=== PATIENT | male | born 1970 | race Caucasian/White ===

== ENCOUNTER 2016-07-29 19:12 | Emergency (ER) | payer OTHER ==
[~2016-07-29] VITALS: Ht 170.2 cm; Wt 72.6 kg
[~2016-07-29 19:12] MED LIST: DIBUCAINE 1% TOP; FLEXERIL10 MG PO; FLOMAX0.4 M1 PO; IBUPROFEN800 M1 PO; PERCOCET 5-3251 EACH PO; PREDNISONE 20MG20 MG PO; TESSALON PERLE100 M1 PO; VALTREX1 GM PO; VICODIN 5-3001 EACH PO; VICODIN5-300 PO; ZOFRAN4 M1 PO
--- NOTE | 2016-07-29 20:32 | RADIOLOGY REPORT ---
EXAMINATION: XR HAND, LEFT CLINICAL INFORMATION: Left hand pain. Evaluate for fracture versus sprain. COMPARISON: None. TECHNIQUE: AP, lateral, and oblique views of the left hand. FINDINGS: The bones and soft tissues are normal. No fracture. Alignment is anatomic. Joint spaces are maintained. No erosions or soft tissue calcifications. IMPRESSION: No acute fracture or dislocation of the left hand. Joint spaces appear grossly preserved. Soft tissues appear unremarkable.
--- NOTE | 2016-07-29 20:42 | ED HAND/WRIST INJURY COMPLAINT ---
History of Present Illness General Chief Complaint: Hand or Wrist Injury Stated Complaint: PT HURT HIS LEFT WRIST Source: patient Exam Limitations: no limitations Vital Signs & Intake/Output Vital Signs & Intake/Output Vital Signs Date Time Temp Pulse Resp B/P Pulse O2 O2 Flow FiO2 Ox Delivery Rate 07/29 2057 80 16 130/72 97 Room Air 07/29 1921 98.4 92 18 136/87 96 Room Air Allergies Coded Allergies: NO KNOWN ALLERGIES (01/14/16) Reconcile Medications Hydrocodone/Acetaminophen (Vicodin 5-300 MG Tablet) 1 EACH TABLET 1 TAB PO 4 TIMES/DAY PRN BREAKTHROUGH PAIN Ibuprofen 800 MG TABLET 1 TAB PO TID PRN PAIN Oxycodone HCl/Acetaminophen (Percocet 5-325 MG Tablet) 5 MG-325 MG TABLET 1 TAB PO BID PAIN Tamsulosin HCl (Flomax) 0.4 MG CAP.ER.24H 1 CAP PO DAILY KIDNEY STONE Tramadol HCl 50 MG TABLET 1 TAB PO BIDP PRN PAIN VALACYCLOVIR HCL (Valtrex) 1 GM TAB 1 TAB PO BID herpes genitalia Triage Note: PT TO ED C/O LEFT WRIST/HAND PAIN S/P INJURY AT WORK YESTERDAY. STATES WAS MOVING LARGE METAL PLANK AND IT CAUGHT IN THE WIND, WRENCHING HIS LEFT WRIST YESTERDAY AT 11 AM. SWELLING NOTED. HAS ARIAN WRAP IN PLACE. DENIES NUMBNESS/TINGELING PT STATES HE DOES NOT WANT TO GO THROUGH [employer] ([place]) IT COMP Triage Nurses Notes Reviewed? yes Occurred: yesterday Duration: day(s): (1) Timing: no prior history Injury Environment: work Severity: moderate Severity Numbers: 8 Pain/Injury Location: Left: Hand. Context: twisted Method of Injury: twisted Modifying Factors: Worsens With: movement. HPI: Patient is a 35-year-old male presenting to the emergency department with chief complaint of left hand pain after twisting at work 2 days ago. Patient reports that he was holding a piece of sheet metal and the wind blew and it twisted his left hand backward. He then noticed swelling and pain. He was able to file the accident with work today. Denies any numbness or tingling. Pain is worse with movement. Has been taking Tylenol and Advil with little to no relief. No fevers chills nausea vomiting chest pain or shortness of breath. Denies numbness. No history of similar injury in the past. (RACHAEL DAVID) Past History Travel History Traveled to [place] past 21 day No Medical History Any Pertinent Medical History? 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 No (RACHAEL DAVID) Review of Systems Review of Systems Constitutional: Reports: no symptoms. Comments Review of systems: See HPI, All other systems negative. Constitutional, no chills fever or weight loss HEENT: No visual changes no sore throat no congestion Cardiovascular: No chest pain Skin, no jaundice no rashes Respiratory: No dyspnea cough GI: No nausea no vomiting : No dysuria No hematuria Muscle skeletal: no back pain, no neck pain, Neurologic: No numbness no confusion Psych: No stress anxiety Immunology: No splenectomy or history of AIDS (RACHAEL DAVID) Physical Exam Physical Exam General Appearance: well developed/nourished, no apparent distress, alert, awake , comfortable Hand Left: limited range of motion, swelling, tender Hand Right: normal inspection, normal range of motion Comments: Well-developed well-nourished person in no acute distress HEENT: . Pupils equally round and reactive to light and accommodation. Nose is atraumatic. Neck: Normal inspection Cardiovascular: normal JVP Respiratory: No respiratory distress. Extremity: Mild erythema and edema noted to the dorsum of the left hand. Limited range of motion of left hand secondary to pain. Capillary refill is intact in upper extremities bilaterally. Radial pulses are 2+ bilaterally. Full range of motion of left wrist. Neuro: Alert oriented x3, motor sensory normal Skin: Mild erythema noted over the dorsum of the left hand. Blanchable. Minimally warm. Psych: Mood and affect is normal, memory and judgment is normal. (RACHAEL DAVID) Progress Differential Diagnosis: cellulitis, contusion, dislocation, fracture, sprain Plan of Care: Orders Procedure Date/time Status Durable Medical Equipment 07/29 2053 Active Likely hand sprain. Patient educated on resting and icing and elevating. He will be started on anti-inflammatory and pain medication. Placed in a splint. He'll follow up with orthopedics for further evaluation if symptoms persist. (RACHAEL DAVID) Diagnostic Imaging: Viewed by Me: Radiology Read. Discussed w/RAD: Radiology Read. Radiology Impression: PATIENT: GAYLE PAYTON PRESENT AGE: 45 PATIENT ACCOUNT NO: [id number] : 70 LOCATION: [facility] ORDERING PHYSICIAN: TESSA CORREA MD SERVICE DATE: 07/29/16 EXAM TYPE: RAD - XRY- HAND, LEFT EXAMINATION: XR HAND, LEFT CLINICAL INFORMATION: Left hand pain. Evaluate for fracture versus sprain. COMPARISON: None. TECHNIQUE: AP, lateral, and oblique views of the left hand. FINDINGS: The bones and soft tissues are normal. No fracture. Alignment is anatomic. Joint spaces are maintained. No erosions or soft tissue calcifications. IMPRESSION: No acute fracture or dislocation of the left hand. Joint spaces appear grossly preserved. Soft tissues appear unremarkable. DICTATED BY: TYRELL LARES MD DATE/TIME DICTATED: 07/29/162026 CAMPUS COORDINATOR:CONCHA (RACHAEL DAVID) Departure Departure Time of Disposition: 2046 Disposition: HOME OR SELF CARE Condition: Stable Clinical Impression Primary Impression: Hand sprain Qualifiers: Encounter type: initial encounter Laterality: left Qualified Code: S63.92XA - Sprain of unspecified part of left wrist and hand, initial encounter Referrals: GAURAV TEMPLE MD (PCP/Family) FALLON RG,CRISTOPHER Mei Additional Instructions: Follow-up with orthopedics call to make an appointment. Wear splint for support. Rest, ice and elevate. Take Tylenol as prescribed for severe pain. Otherwise take [id number] Motrin or Tylenol as directed. Ice as much as possible. Departure Forms: Customer Survey General Discharge Information Prescriptions: Current Visit Scripts Tramadol HCl 1 TAB PO BIDP PRN PAIN #10 TAB (RACHAEL DAVID) PA/MASTER BAKER Co-Sign Statement Statement: ED Attending supervision documentation- [] I saw and evaluated the patient. I have also reviewed all the pertinent lab results and diagnostic results. I agree with the findings and the plan of care as documented in the OCTAVIANO's/MASTER BAKER's documentation. x I have reviewed the ED Record and agree with the PA's/MASTER BAKER's documentation. [] Additions or exceptions (if any) to the PAs/MASTER BAKER's note and plan are summarized below: [] (SUNNY RG,TESSA) Procedures Splinting Location: left hand Manual Alignment Performed: No Pre-Made Type: velcro Splint: wrist Splint Applied By: splint applied by other Pre-Proc Neuro Vasc Exam: normal Post-Proc Neuro Vasc Exam: normal Progress: Patient tolerated procedure well. (JESSIKA BRUMFIELD,RACHAEL)
[2016-07-29] MEDS ORDERED: TRAMADOL HCL50 M1 PO (20:52)
[2016-07-29 20:58] VITALS: BP 130/72
== END 2016-07-29 21:12 ==
LOC: ERH 19:12
DX: S63.92XA Sprain of unspecified part of left wrist and hand, initial encounter (principal); X50.9XXA Other and unspecified overexertion or strenuous movements or postures, initial encounter; Y93.89 Activity, other specified; Y92.9 Unspecified place or not applicable
CPT/HCPCS: 73130-LT

== ENCOUNTER 2016-10-26 13:28 | Emergency (ER) | payer OTHER ==
[~2016-10-26] VITALS: Ht 170.2 cm; Wt 72.6 kg
[~2016-10-26 13:28] MED LIST changes: +TRAMADOL HCL50 M1 PO
--- NOTE | 2016-10-26 14:15 | ED UPPER/LOWER EXTREMITY COMPL ---
History of Present Illness General Chief Complaint: General Adult Stated Complaint: GROIN PAIN X2 WEEKS Source: patient Exam Limitations: no limitations Vital Signs & Intake/Output Vital Signs & Intake/Output Vital Signs Date Time Temp Pulse Resp B/P B/P Pulse O2 O2 Flow FiO2 Mean Ox Delivery Rate 10/26 1337 97.8 91 14 133/88 98 Room Air Allergies Coded Allergies: NO KNOWN ALLERGIES (01/14/16) Reconcile Medications No Known Home Medications Triage Note: 46 Y/O MALE C/O BILATERAL GROIN PAIN X 2 WEEKS S/P PLAYING BASEBALL. STATES PAIN IS CONSTANT. DENIES N/V/D. DENIES URINARY SYMPTOMS Triage Nurses Notes Reviewed? yes Onset: Abrupt Duration: week(s): Timing: recent history Severity: moderate Method of Injury: fall, sports injury No Modifying Factors: none HPI: 46YO male presents to ED c/o bilateral groin pain. Patient states that 2 weeks ago he was playing softball and dove forward injuring his groin. He immediately felt pain and had to rest. He continues to have pain in his groin, worse on his right side. Pain is worse with movement and activity. He has taken tylenol with no relief in his symptoms. He denies urinary symptoms, testicular pain, abdominal pain, nausea, vomiting, fevers, chills. Past History Travel History Traveled to [place] past 21 day No Medical History Any Pertinent Medical History? 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 No Review of Systems Review of Systems Constitutional: Reports: no symptoms. EENTM: Reports: no symptoms. Respiratory: Reports: no symptoms. Cardiovascular: Reports: no symptoms. Gastrointestinal/Abdominal: Reports: no symptoms. Genitourinary: Reports: see HPI. Musculoskeletal: Reports: see HPI. Skin: Reports: no symptoms. Neurological/Psychological: Reports: no symptoms. Hematologic/Endocrine: Reports: no symptoms. Immunological: Reports: no symptoms. All Other Systems: Reviewed and Negative Physical Exam Physical Exam General Appearance: well developed/nourished, no apparent distress, alert, awake Head: atraumatic, normal appearance Eyes: Bilateral: normal appearance, EOMI. Ears, Nose, Throat: hearing grossly normal Neck: normal inspection, supple Cardiovascular/Respiratory: no respiratory distress Back: normal inspection, normal range of motion Progress Plan of Care: Orders Procedure Date/time Status URINALYSIS 10/26 142 Active COMPREHENSIVE METABOLIC PANEL 10/26 142 Active CBC WITHOUT DIFFERENTIAL 10/[address] PELVIS WO IV CONTRAST 10/26 142 Active XRY-AP PELVIS 10/26 1417 Active Departure Departure Disposition: HOME OR SELF CARE Condition: Stable Clinical Impression Primary Impression: Groin strain Referrals: GAURAV TEMPLE MD (PCP/Family) Additional Instructions: Take flexoril as prescribed as needed for pain. This medication can cause drowsiness, do not drive while on this medication. Take Motrin as prescribed for pain. Rest, apply ice, follow up with physical therapy for strengthening. Follow up with your primary care doctor. Return with any worsening symptoms or concerns. Please go over all results of today's visit with your primary care doctor. Contact your primary care doctor to let them know you were here in the emergency room. There may be nonspecific findings which may not be related to your visit today here in the emergency room but may require further evaluation and chronic monitoring by your primary care doctor. If you had a laceration today the chance of foreign body always remains. You should follow-up with your primary care doctor for recheck in 3-5 days for a wound check. If you had an x-ray done there is a chance that a fracture could have been missed on initial read and you should follow-up with your primary care doctor for repeat x-rays if symptoms persist. If your blood pressure was elevated here in the emergency room please have rechecked by her primary care doctor within the next 48 hours by your primary care doctor. If you were prescribed a narcotic here in the emergency room or any type of controlled substances you're not allowed to drive while taking this medication or operate any type of heavy machinery. Narcotics can make you feel lightheaded dizziness nausea and can cause constipation. You may need to shrimp picker a stool softener. Thank you for choosing [facility] emergency room. Please return to the emergency room immediately if you have any other concerns worsening of symptoms. Departure Forms: Customer Survey General Discharge Information Prescriptions: Current Visit Scripts No Known Home Medications
--- NOTE | 2016-10-26 14:32 | ED GENERAL ADULT ---
History of Present Illness General Chief Complaint: General Adult Stated Complaint: GROIN PAIN X2 WEEKS Source: patient Exam Limitations: no limitations Vital Signs & Intake/Output Vital Signs & Intake/Output Vital Signs Date Time Temp Pulse Resp B/P B/P Pulse O2 O2 Flow FiO2 Mean Ox Delivery Rate 10/26 1604 98.0 70 18 131/78 98 Room Air 10/26 1445 Room Air 10/26 1337 97.8 91 14 133/88 98 Room Air Allergies Coded Allergies: NO KNOWN ALLERGIES (01/14/16) Reconcile Medications Cyclobenzaprine HCl 10 MG TABLET 1 TAB PO QPM PRN pain Ibuprofen 800 MG TABLET 1 TAB PO TID PRN pain Triage Note: 46 Y/O MALE C/O BILATERAL GROIN PAIN X 2 WEEKS S/P PLAYING BASEBALL. STATES PAIN IS CONSTANT. DENIES N/V/D. DENIES URINARY SYMPTOMS Triage Nurses Notes Reviewed? yes Onset: Abrupt Duration: week(s): Timing: recent history Severity: moderate No Modifying Factors: none HPI: 46YO male presents to ED c/o bilateral groin pain. Patient states that 2 weeks ago he was playing softball and dove forward injuring his groin. He immediately felt pain and had to rest. He continues to have pain in his groin, worse on his right side. Pain is worse with movement and activity with radiation to his lower abdomen. He has taken tylenol with no relief in his symptoms. He denies urinary symptoms, testicular pain, nausea, vomiting, fevers, chills (PETERSON VALENCIA) Past History Travel History Traveled to [place] past 21 day No Medical History Any Pertinent Medical History? 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 No (PETERSON VALENCIA) Review of Systems Review of Systems Constitutional: Reports: no symptoms. EENTM: Reports: no symptoms. Respiratory: Reports: no symptoms. Cardiovascular: Reports: no symptoms. GI: Reports: see HPI. Genitourinary: Reports: see HPI. Musculoskeletal: Reports: see HPI. Skin: Reports: no symptoms. Neurological/Psychological: Reports: no symptoms. Hematologic/Endocrine: Reports: no symptoms. Immunologic/Allergic: Reports: no symptoms. All Other Systems: Reviewed and Negative (PETERSON VALENCIA) Physical Exam Physical Exam General Appearance: well developed/nourished, no apparent distress, alert Head: atraumatic, normal appearance Eyes: Bilateral: normal appearance, EOMI. Ears, Nose, Throat: hearing grossly normal Neck: normal inspection, supple Respiratory: no respiratory distress Gastrointestinal: normal bowel sounds, soft, non-tender, no organomegaly Back: normal inspection, normal range of motion Extremities: normal inspection, normal capillary refill, normal range of motion, pain with active hip flexion bilaterally Neurologic/Psych: no motor/sensory deficits, awake, alert, oriented x 3 Skin: intact, normal color, warm/dry Lymphatic: inguinal node tender (R), inguinal node tender (L) Comments: exam: inguinal tenderness to palpation, no skin changes Core Measures ACS in differential dx? No CVA/TIA Diagnosis: No Severe Sepsis Present: No Septic Shock Present: No (PETERSON VALENCIA) Progress Differential Diagnoses I considered the following diagnoses in my evaluation of the patient: [muscle strain, inguinal hernia, diverticulitis, epididymitis, nephrolithiasis] Plan of Care: Orders Procedure Date/time Status URINALYSIS 10/26 1425 Complete COMPREHENSIVE METABOLIC PANEL 10/26 1425 Complete CBC WITHOUT DIFFERENTIAL 10/26 1425 Complete Laboratory Tests 10/26/16 1445: Urinalysis LIGHT H, Urine Color YEL, Urine Clarity CLEAR, Urine pH 6.0, Ur Specific [place] 1.020, Urine Protein NEG, Urine Ketones NEG, Urine Nitrite NEG, Urine Bilirubin NEG, Urine Urobilinogen 0.2, Ur Leukocyte Esterase NEG, Ur Microscopic SEDIMENT EXAMINED, Urine RBC 1-3, Urine WBC RARE, Ur Epithelial Cells RARE, Urine Bacteria RARE H, Hyaline Casts RARE H, Urine Mucus FEW, Urine Hemoglobin SMALL H, Urine Glucose NEG 10/26/16 1437: Anion Gap 8, Estimated GFR > 60, BUN/Creatinine Ratio 17.0, Glucose 58 L, Calcium 9.7, Total Bilirubin 0.7, AST 18, ALT 30, Alkaline Phosphatase 52, Total Protein 7.1, Albumin 4.4, Globulin 2.7, Albumin/Globulin Ratio 1.6, CBC w Diff NO MAN DIFF REQ, RBC 5.06, MCV 92.3, MCH 30.7, RDW 12.9, MPV 7.6, Gran % 72.8, Lymphocytes % 15.9 L, Monocytes % 9.5 H, Eosinophils % 1.5, Basophils % 0.3, Absolute Granulocytes 7.7 H, Absolute Lymphocytes 1.7, Absolute Monocytes 1.0 H, Absolute Eosinophils 0.2, Absolute Basophils 0, PUBS MCHC 33.3 Patient is lying comfortably in stretcher, using his cell phone. He is in no distress, non toxic appearing, his vital signs are stable. CT scan shows pelvic lymph nodes have not changed in size since prior study, no evidence of fracture. Imaging and blood work was discussed with patient in detail. He was given a prescription for muscle relaxer and anti-inflammatory. He will follow up with physical therapy and his primary care doctor. He will return with any worsening symptoms or concerns. He has an agreement with plan of care. Symptoms are most consistent with muscular pain. Patient understands and agrees with plan of care. (JACKIE BRUMFIELD,PETERSON) Diagnostic Imaging: Viewed by Me: Radiology Read. Discussed w/RAD: Radiology Read. Radiology Impression: PATIENT: GAYLE PAYTON PRESENT AGE: 46 PATIENT ACCOUNT NO: [id number] : 70 LOCATION: [facility] ORDERING PHYSICIAN: PETERSON BRUMFIELD SERVICE DATE: 10/26/16 EXAM TYPE: CAT - CT PELVIS WO IV CONTRAST EXAMINATION: CT PELVIS WITHOUT CONTRAST CLINICAL INFORMATION: Pelvic pain status post fall, lymph node swelling. COMPARISON: TECHNIQUE: Helical scanning was performed with submillimeter collimation through the pelvis. Sagittal and coronal multiplanar 2-D reconstructions were obtained. DLP: 449 mGy-cm FINDINGS: PELVIS: There are multiple scattered distal descending and sigmoid colon diverticula without evidence of acute diverticulitis. The appendix is normal-appearing. Prostate is mildly enlarged containing multiple coarse calcifications unchanged. There is no evidence of pathologically enlarged lymph nodes. Multiple small nonspecific bilateral inguinal lymph nodes appear largely unchanged compared with the previous exam. Anterior abdominal wall is intact without evidence of underlying hernia. OSSEOUS STRUCTURES: No focal destructive or sclerotic osseous lesions are seen. There are small herniation pits in the femoral heads bilaterally, an incidental finding. IMPRESSION: 1. Multiple small bilateral inguinal lymph nodes appear unchanged compared with the previous exam. 2. No pathologically enlarged lymph nodes by size criteria. 3. Diverticulosis in the left colon without evidence of acute diverticulitis. 4. Osseous structures appear unremarkable without evidence of underlying fracture or focal pathologic-appearing osseous lesions. DICTATED BY: EB OQUENDO MD DATE/TIME DICTATED:10/26/161522 ASSOCIATE RESEARCH SCIENTIST: CONCHA DATE/TIME TRANSCRIBED:10/26/161522 CONFIDENTIAL, DO NOT COPY WITHOUT APPROPRIATE AUTHORIZATION. <Electronically signed in Other Vendor System> SIGNED BY: EB OQUENDO MD 10/26/16 3822 Initial ED EKG: none (PETERSON VALENCIA) Departure Departure Disposition: HOME OR SELF CARE Condition: Stable Clinical Impression Primary Impression: Groin strain Referrals: GAURAV TEMPLE MD (PCP/Family) Physical Therapy Additional Instructions: Take flexoril as prescribed as needed for pain. This medication can cause drowsiness, do not drive while on this medication. Take Motrin as prescribed for pain. Rest, apply ice, follow up with physical therapy for strengthening. Follow up with your primary care doctor. Return with any worsening symptoms or concerns. Please go over all results of today's visit with your primary care doctor. Contact your primary care doctor to let them know you were here in the emergency room. There may be nonspecific findings which may not be related to your visit today here in the emergency room but may require further evaluation and chronic monitoring by your primary care doctor. If you had a laceration today the chance of foreign body always remains. You should follow-up with your primary care doctor for recheck in 3-5 days for a wound check. If you had an x-ray done there is a chance that a fracture could have been missed on initial read and you should follow-up with your primary care doctor for repeat x-rays if symptoms persist. If your blood pressure was elevated here in the emergency room please have rechecked by her primary care doctor within the next 48 hours by your primary care doctor. If you were prescribed a narcotic here in the emergency room or any type of controlled substances you're not allowed to drive while taking this medication or operate any type of heavy machinery. Narcotics can make you feel lightheaded dizziness nausea and can cause constipation. You may need to worm picker a stool softener. Thank you for choosing [facility] emergency room. Please return to the emergency room immediately if you have any other concerns worsening of symptoms. Departure Forms: Customer Survey General Discharge Information Prescriptions: Current Visit Scripts Cyclobenzaprine HCl 1 TAB PO QPM PRN pain #10 TAB Ibuprofen 1 TAB PO TID PRN pain #20 TAB (PETERSON VALENCIA) PA/EDUCATION MANAGERS Co-Sign Statement Statement: ED Attending supervision documentation- [] I saw and evaluated the patient. I have also reviewed all the pertinent lab results and diagnostic results. I agree with the findings and the plan of care as documented in the PA's/EDUCATION MANAGERS's documentation. [X] I have reviewed the ED Record and agree with the PA's/EDUCATION MANAGERS's documentation. [] Additions or exceptions (if any) to the PAs/EDUCATION MANAGERS's note and plan are summarized below: [] (CORNELIA RG,KELLY) Critical Care Note Critical Care Note Critical Care Time: non-applicable (PETERSON VALENCIA)
[2016-10-26 14:54] LABS: ABSOLUTE BASOPHIL COUNT 0 /CUMM (0.0-0.2); ABSOLUTE EOSINOPHIL COUNT 0.2 /CUMM (0.0-0.7); ABSOLUTE GRANULOCYTE CT 7.7 /CUMM (1.4-6.5); ABSOLUTE LYMPH COUNT 1.7 /CUMM (1.2-3.4); BASOPHIL % 0.3 % (0.0-2.0); EOSINOPHIL % 1.5 % (0-5); GRANULOCYTE % 72.8 % (42.2-75.2); HEMATOCRIT 46.7 % (42-52); MEAN CORPUSCULAR HGB 30.7 PG (27.0-31.0); MEAN CORPUSCULAR HGB CONC 33.3 G/DL (33.0-37.0); MEAN CORPUSCULAR VOLUME 92.3 FL (80.0-94.0); MEAN PLATELET VOLUME 7.6 FL (7.4-10.4); PLATELET COUNT 237 /CUMM (130-400); RBC DISTRIBUTION WIDTH 12.9 % (11.5-14.5); RED BLOOD CELL CT 5.06 /CUMM (4.70-6.10); WHITE BLOOD CELL COUNT 10.5 /CUMM (4.8-10.8)
--- NOTE | 2016-10-26 15:54 | CT SCAN REPORT ---
EXAMINATION: CT PELVIS WITHOUT CONTRAST CLINICAL INFORMATION: Pelvic pain status post fall, lymph node swelling. COMPARISON: 01/20/2016 TECHNIQUE: Helical scanning was performed with submillimeter collimation through the pelvis. Sagittal and coronal multiplanar 2-D reconstructions were obtained. DLP: 449 mGy-cm FINDINGS: PELVIS: There are multiple scattered distal descending and sigmoid colon diverticula without evidence of acute diverticulitis. The appendix is normal-appearing. Prostate is mildly enlarged containing multiple coarse calcifications unchanged. There is no evidence of pathologically enlarged lymph nodes. Multiple small nonspecific bilateral inguinal lymph nodes appear largely unchanged compared with the previous exam. Anterior abdominal wall is intact without evidence of underlying hernia. OSSEOUS STRUCTURES: No focal destructive or sclerotic osseous lesions are seen. There are small herniation pits in the femoral heads bilaterally, an incidental finding. IMPRESSION: 1. Multiple small bilateral inguinal lymph nodes appear unchanged compared with the previous exam. 2. No pathologically enlarged lymph nodes by size criteria. 3. Diverticulosis in the left colon without evidence of acute diverticulitis. 4. Osseous structures appear unremarkable without evidence of underlying fracture or focal pathologic-appearing osseous lesions.
[2016-10-26 16:04] VITALS: BP 131/78
[2016-10-26] MEDS ORDERED: IBUPROFEN800 M1 PO (16:05)
[2016-10-26] MEDS ORDERED: CYCLOBENZAPRINE10 M1 PO (16:05)
== END 2016-10-26 16:15 ==
LOC: ERH 13:28
PROVIDERS: Physician Assistant Medical
DX: S76.911A Strain of unspecified muscles, fascia and tendons at thigh level, right thigh, initial encounter (principal); X58.XXXA Exposure to other specified factors, initial encounter; Y93.64 Activity, baseball; Y92.9 Unspecified place or not applicable
CPT/HCPCS: 81001